=== PATIENT | female | born 1975 | race African-American/Black ===

== ENCOUNTER 2016-05-16 20:28 | Emergency (ER) | payer OTHER ==
[2016-05-16] MEDS ORDERED: ACETAMINOPHEN 325 MG TABLET PO ONE (21:17)
--- NOTE | 2016-05-16 21:29 | ER Document Report ---
ED Medical Screen (RME) - General Chief Complaint: Flu Symptoms Stated Complaint: FEVER/BODY ACHES/DIZZINESS Mode of Arrival: Ambulatory Information source: Patient Notes: 40 y/o F presents to ED c/o chills, headache, generalized body aches, and non- productive cough since earlier today. Denies chest pain or sob. I have greeted and performed a rapid initial assessment of this patient. A comprehensive ED assessment and evaluation of the patient, analysis of test results and completion of the medical decision making process will be conducted by additional ED providers. TRAVEL OUTSIDE OF THE [place] IN LAST 30 DAYS: No - Related Data Allergies/Adverse Reactions: codeine Allergy (Verified 05/16/16 21:11) movement difficulty hydrocodone [Hydrocodone] Allergy (Verified 05/16/16 21:11) movement difficulty hydrocodone bitartrate [From Vicodin] Allergy (Verified 05/16/16 21:11) itching Past Medical History - Social History Frequency of alcohol use: None Drug Abuse: None - Past Medical History Cardiac Medical History: Reports: Hx Hypertension Renal/ Medical History: Reports: Hx Kidney Stones. Denies: Hx Peritoneal Dialysis Past Surgical History: Reports: Hx Appendectomy, Hx Cholecystectomy - Immunizations Hx Diphtheria, Pertussis, Tetanus Vaccination: Yes Physical Exam - Vital signs Vitals: Temp Pulse Resp BP 102.3 F H 117 H 20 190/90 H 05/16/16 21:07 05/16/16 21:07 05/16/16 21:07 05/16/16 21:07 - General General appearance: Alert In distress: None - Respiratory Respiratory status: No respiratory distress - Neurological Neuro grossly intact: Yes Cognition: Normal Orientation: AAOx4 Arsh Coma Scale Eye Opening: Spontaneous Arsh Coma Scale Verbal: Oriented Arsh Coma Scale Motor: Obeys Commands [place] Coma Scale Total: 15 Speech: Normal Sensory: Normal Course - Vital Signs Vital signs: Temp Pulse Resp BP Pulse Ox 102.3 F H 117 H 20 190/90 H 05/16/16 21:07 05/16/16 21:07 05/16/16 21:07 05/16/16 21:07
[2016-05-17 00:01] VITALS: BP 153/89
--- NOTE | 2016-05-17 01:47 | ER Document Report ---
ED General - General Mode of Arrival: Ambulatory Information source: Patient TRAVEL OUTSIDE OF THE [place] IN LAST 30 DAYS: No - HPI Patient complains to provider of: Headache and Chills Onset: This evening - 6pm Associated symptoms: Other - see above - General Chief Complaint: Flu Symptoms Stated Complaint: FEVER/BODY ACHES/DIZZINESS Notes: 40 year old female with no prior medical problems presents to the ED complaining of chills and a headache that started at 1800 this evening. Patient states that her headache radiates to her neck and upper back. When coughing, the pain is exacerbated towards the top of her head. Patient additionally complains of nasal congestion, sneezing, and coughing. Patient denies nasal discharge or throat pain. (HUBER DUFF) - Related Data Allergies/Adverse Reactions: codeine Allergy (Verified 05/16/16 21:11) movement difficulty hydrocodone [Hydrocodone] Allergy (Verified 05/16/16 21:11) movement difficulty hydrocodone bitartrate [From Vicodin] Allergy (Verified 05/16/16 21:11) itching Past Medical History - General Information source: Patient - Social History Smoking Status: Never Smoker Frequency of alcohol use: None Drug Abuse: None Family History: Reviewed & Not Pertinent, CAD, Hypertension Patient has suicidal ideation: No Patient has homicidal ideation: No - Past Medical History Cardiac Medical History: Reports: Hx Hypertension Renal/ Medical History: Reports: Hx Kidney Stones. Denies: Hx Peritoneal Dialysis Past Surgical History: Reports: Hx Appendectomy, Hx Cholecystectomy - Immunizations Hx Diphtheria, Pertussis, Tetanus Vaccination: Yes Review of Systems - Review of Systems Constitutional: See HPI, Chills EENT: See HPI, Nose congestion. denies: Nose discharge, Throat pain Cardiovascular: No symptoms reported Respiratory: See HPI, Cough Gastrointestinal: No symptoms reported Genitourinary: No symptoms reported Female Genitourinary: No symptoms reported Musculoskeletal: No symptoms reported Skin: No symptoms reported Hematologic/Lymphatic: No symptoms reported Neurological/Psychological: See HPI, Headaches Physical Exam - General General appearance: Alert In distress: None - HEENT Head: Normocephalic, Atraumatic Eyes: Normal Extraocular movements intact: Yes Pupils: PERRL Nasal: No: Other - nasal congestion - Respiratory Respiratory status: No respiratory distress Breath sounds: Normal - Cardiovascular Rhythm: Regular Heart sounds: Normal auscultation - Abdominal Inspection: Normal - Back Back: Tender - left trapezius tenderness to palpation - Extremities General upper extremity: Normal inspection, Normal ROM General lower extremity: Normal inspection, Normal ROM - Neurological Neuro grossly intact: Yes Cognition: Normal Orientation: AAOx4 [place] Coma Scale Eye Opening: Spontaneous Arsh Coma Scale Verbal: Oriented [place] Coma Scale Motor: Obeys Commands Arsh Coma Scale Total: 15 Speech: Normal - Psychological Associated symptoms: Normal affect, Normal mood - Skin Skin Temperature: Warm Skin Moisture: Dry Skin Color: Normal Course - Re-evaluation Re-evalutation: 05/17/16 Patient presents with an influenza-like illness. Patient was also complaining of headache. Patient feels better after medications. Has been treated for headaches in the past. No evidence for meningitis or intracranial process. Stable for discharge. Return if any worsening or concerning symptoms. ( JACKIE RENDON) - Vital Signs Vital signs: Temp Pulse Resp BP Pulse Ox 99.1 F 86 20 153/89 H 96 05/16/16 23:58 05/16/16 23:58 05/16/16 21:07 05/16/16 23:58 05/16/16 23:58 (HUBER DUFF) (JACKIE RENDON) Discharge - Discharge Clinical Impression: Headache Qualifiers: Headache type: unspecified Headache chronicity pattern: acute headache Intractability: not intractable Qualified Code(s): R51 - Headache Upper respiratory infection Qualifiers: URI type: unspecified URI Qualified Code(s): J06.9 - Acute upper respiratory infection, unspecified Condition: Stable Disposition: HOME, SELF-CARE Instructions: Upper Respiratory Illness ([facility]), Headache ([facility]) Prescriptions: Butalb/Acetaminophen/Caffeine [Fioricet 50-300-40 mg Capsule] 1 cap PO Q4 PRN # 20 cap PRN Reason: Scribe Attestation: 05/17/16 07:04 I personally performed the services described in the documentation, reviewed and edited the documentation which was dictated to the scribe in my presence, and it accurately records my words and actions. (JACKIE RENDON) Scribe Documentation - Scribe Written by Scribe:: Mary Jo Jarrett, 05/17/2016 0509 acting as scribe for :: Ruben
[2016-05-17] MEDS ORDERED: KETOROLAC TROMETHAMINE 60 MG/2 ML SDV IM ONE (01:50)
[2016-05-17] MEDS ORDERED: ONDANSETRON 4 MG TAB.RAPDIS PO ONE (01:50)
== END 2016-05-17 02:19 | disposition home or self-care (01) ==
LOC: ER 20:28
DX: J06.9 Acute upper respiratory infection, unspecified (principal); R51 Headache; R50.9 Fever, unspecified; R42 Dizziness and giddiness; I10 Essential (primary) hypertension; Z88.6 Allergy status to analgesic agent; Z87.442 Personal history of urinary calculi; Z90.49 Acquired absence of other specified parts of digestive tract
CPT/HCPCS: 99283; 96372; 87804; J1885; S0119

== ENCOUNTER 2017-06-07 13:42 | Emergency (ER) | payer SELFPAY ==
[2017-06-07] MEDS ORDERED: BUTALB/ACETAMINOPHEN/CAFFEINE 1 TAB EACH PO ONE (14:33)
[2017-06-07] MEDS ORDERED: AMLODIPINE BESYLATE 10 MG TABLET PO ONE (14:33)
--- NOTE | 2017-06-07 15:01 | RADIOLOGY REPORT (SQ) ---
EXAM DESCRIPTION: CT HEAD WITHOUT COMPLETED DATE/TIME: 06/07/2017 2:48 pm REASON FOR STUDY: [facility] COMPARISON: August 2014 TECHNIQUE: Axial images acquired through the brain without intravenous contrast. Images reviewed wi th bone, brain and subdural windows. Images stored on PACS. All CT scanners at this facility use dose modulation, iterative reconstruction, and/or weight based d osing when appropriate to reduce radiation dose to as low as reasonably achievable (ALARA). [facility]: Dose Right [facility]: CareDose [facility]: Dose Right [facility]: Teradose 4D [facility]: PulsePoint RADIATION DOSE: CT Rad equipment meets quality standard of care and radiation dose reduction techniq ues were employed. CTDIvol: 64.6 mGy. DLP: 1163 mGy-cm. mGy. LIMITATIONS: None. FINDINGS: VENTRICLES: Normal size and contour. CEREBRUM: No masses. No hemorrhage. No midline shift. No evidence for acute infarction. Normal gra y/white matter differentiation. No areas of low density in the white matter. CEREBELLUM: No masses. No hemorrhage. No alteration of density. No evidence for acute infarction. EXTRAAXIAL SPACES: No fluid collections. No masses. ORBITS AND GLOBE: No intra- or extraconal masses. Normal contour of globe without masses. CALVARIUM: No fracture. PARANASAL SINUSES: No fluid or mucosal thickening. SOFT TISSUES: No mass or hematoma. OTHER: No other significant finding. IMPRESSION: NORMAL BRAIN CT WITHOUT CONTRAST. EVIDENCE OF ACUTE STROKE: NO. COMMENT: Quality ID # [id number]: Final reports with documentation of one or more dose reduction techniques (e.g., Automated exposure control, adjustment of the mA and/or kV according to patient size, use of iterative reconstruction technique) TECHNICAL DOCUMENTATION: JOB ID: [id number] [employer]- All Rights Reserved Reading location - IP/workstation name: [email or web address]
[2017-06-07 15:29] VITALS: BP 134/92
--- NOTE | 2017-06-07 15:35 | ER Document Report ---
ED Blood Pressure Problem - General Chief Complaint: High Blood Pressure Stated Complaint: HEADACHE, FACE PAIN Time Seen by Provider: 06/07/17 14:33 Mode of Arrival: Ambulatory Information source: Patient Notes: Patient presents with constant moderate bilateral headache. It radiates into her face. She states it is a pressure-like sensation. She states she has not had her blood pressure medicine in 6 months. She states she was also at the of her brother today and has been emotionally upset. Some nausea no vomiting or diarrhea. No recent cough cold or congestion. No chest pain or shortness of breath. TRAVEL OUTSIDE OF THE [place] IN LAST 30 DAYS: No - Related Data Allergies/Adverse Reactions: codeine Allergy (Verified 06/07/17 13:47) movement difficulty hydrocodone [Hydrocodone] Allergy (Verified 06/07/17 13:47) movement difficulty hydrocodone bitartrate [From Vicodin] Allergy (Verified 06/07/17 13:47) itching Past Medical History - General Information source: Patient - Social History Smoking Status: Never Smoker Chew tobacco use (# tins/day): Yes Frequency of alcohol use: None Drug Abuse: None Family History: Reviewed & Not Pertinent, CAD, Hypertension Patient has suicidal ideation: No Patient has homicidal ideation: No - Past Medical History Cardiac Medical History: Reports: Hx Hypertension Renal/ Medical History: Reports: Hx Kidney Stones. Denies: Hx Peritoneal Dialysis Past Surgical History: Reports: Hx Appendectomy, Hx Cholecystectomy - Immunizations Hx Diphtheria, Pertussis, Tetanus Vaccination: Yes Review of Systems - Review of Systems Constitutional: denies: Chills, Fever Cardiovascular: denies: Chest pain, Palpitations Respiratory: denies: Cough, Short of breath -: Yes All other systems reviewed and negative Physical Exam - Vital signs Vitals: Temp Pulse Resp BP Pulse Ox 98.8 F 94 20 162/114 H 99 06/07/17 14:10 06/07/17 14:10 06/07/17 14:10 06/07/17 14:10 06/07/17 14:10 Interpretation: Hypertensive - General General appearance: Appears well, Alert - HEENT Head: Normocephalic, Atraumatic Eyes: Normal Pupils: PERRL - Respiratory Respiratory status: No respiratory distress Chest status: Nontender Breath sounds: Normal Chest palpation: Normal - Cardiovascular Rhythm: Regular Heart sounds: Normal auscultation Murmur: No - Abdominal Inspection: Normal Distension: No distension Bowel sounds: Normal Tenderness: Nontender Organomegaly: No organomegaly - Back Back: Normal, Nontender - Extremities General upper extremity: Normal inspection, Nontender, Normal color, Normal ROM , Normal temperature General lower extremity: Normal inspection, Nontender, Normal color, Normal ROM , Normal temperature, Normal weight bearing. No: Jn's sign - Neurological Neuro grossly intact: Yes Cognition: Normal Orientation: AAOx4 [place] Coma Scale Eye Opening: Spontaneous [place] Coma Scale Verbal: Oriented Arsh Coma Scale Motor: Obeys Commands [place] Coma Scale Total: 15 Speech: Normal Motor strength normal: LUE, RUE, LLE, RLE Sensory: Normal - Psychological Associated symptoms: Normal affect, Normal mood - Skin Skin Temperature: Warm Skin Moisture: Dry Skin Color: Normal Course - Vital Signs Vital signs: Temp Pulse Resp BP Pulse Ox 98.7 F 90 18 134/92 H 99 06/07/17 15:26 06/07/17 15:26 06/07/17 15:26 06/07/17 15:26 06/07/17 15:26 - Diagnostic Test Radiology reviewed: Image reviewed, Reports reviewed - ct of the head without evidence of acute path Discharge - Discharge Clinical Impression: Uncontrolled hypertension Headache Qualifiers: Headache type: tension-type Headache chronicity pattern: acute headache Intractability: intractable Qualified Code(s): G44.201 - Tension-type headache, unspecified, intractable Condition: Stable Disposition: HOME, SELF-CARE Instructions: High Blood Pressure, Requiring Treatment ([facility]), Headache ([facility]) Prescriptions: Butalb/Acetaminophen/Caffeine [Fioricet (50-325-40 mg) Tablet] 1 tab PO Q4HP PRN #30 tab PRN Reason: Amlodipine Besylate [Norvasc 5 mg Tablet] 5 mg PO DAILY #30 tablet Forms: Elevated Blood Pressure, Return to Work
== END 2017-06-07 15:37 | disposition home or self-care (01) ==
LOC: ER 13:42
DX: G44.201 Tension-type headache, unspecified, intractable (principal); I10 Essential (primary) hypertension; Z88.6 Allergy status to analgesic agent; Z87.442 Personal history of urinary calculi; Z90.49 Acquired absence of other specified parts of digestive tract
CPT/HCPCS: 99283; 70450; J3490